=== PATIENT | female | born 1960 | race Caucasian/White ===

== ENCOUNTER 2017-01-18 19:49 | Emergency (ER) | payer OTHER ==
[~2017-01-18] VITALS: Wt 83.1 kg
[~2017-01-18 19:49] MED LIST: ATOR20TA38 PO; BEN25 PO; CYCL-319 PO; GEMF600T60 PO; HYDR-906 PO; MELO-109 PO; METF-382 PO
[2017-01-18] MEDS ORDERED: ONDANSETRON (ODT) 4 MG TAB ODT STA (21:09)
[2017-01-18] MEDS ORDERED: HYDROCODONE/APAP (10/325) TAB PO ONE (21:30)
--- NOTE | 2017-01-18 22:03 | RADRPT ---
PROCEDURE: XR Chest. CLINICAL INDICATION: Upper back pain. TECHNIQUE: Single frontal view of the chest was obtained COMPARISON: 08/29/2016 FINDINGS: The heart and mediastinum are within normal limits. The lungs are clear. There is no pleural effusion or pneumothorax. IMPRESSION: No acute disease. RPTAT: [facility] Physician Joann Date Time Electronically viewed and signed by Kaylee Hernandez Physician on 01/18/2017 22:03 RS/
[2017-01-18] MEDS ORDERED: OXYB5TAB7 PO (22:41)
[2017-01-18] MEDS ORDERED: MECL-77 PO (22:41)
[2017-01-18] MEDS ORDERED: SERT50TA6 PO (22:42)
[2017-01-18] MEDS ORDERED: TRAZ50TA18 PO (22:42)
[2017-01-18] MEDS ORDERED: HYDR-902 PO (22:48)
--- NOTE | 2017-01-18 22:51 | ERD ---
ER Documentation Chief Complaint Date/Time DATE: 01/18/17 TIME: 22:49 Chief Complaint CHEST PAIN RADIATING TO BACK FOR THE PAST 6 HRS. NO N/V. MILD SOB HPI Patient is a 56-year-old female with diabetes and high cholesterol presents with back pain. The patient had bad back pain per the family member and her "heart was beating hard". She has pain from her neck to her lower back. The pain is more right-sided than left-sided. The patient has back pain for 6 years but it was worse today. She has no urinary symptoms. She took "pain relief". She has no trauma and no falls. Upon review of old medical records the patient one previous visit to the ER in 2016. ROS All systems reviewed and are negative except as per history of present illness. Medications Home Meds Active Scripts Hydrocodone/Acetaminophen ([place] 10-325 Tablet) 1 Each Tablet, 1 TAB PO Q6H Y for PAIN, #7 TAB Prov:JACOB ESPINOSA MD 01/18/17 Cyclobenzaprine Hcl* (Cyclobenzaprine Hcl*) 10 Mg Tablet, 10 MG PO TID, #15 TAB Prov:MIC WYLIE 08/29/16 Reported Medications Sertraline Hcl* (Sertraline Hcl*) Unknown Strength Tablet, MG PO DAILY, #30 TAB 01/18/17 Trazodone Hcl* (Trazodone Hcl*) Unknown Strength Tablet, MG PO QHS, #30 TAB 01/18/17 Meclizine Hcl* (Meclizine Hcl*) 25 Mg Tablet, 25 MG PO Q8H Y for DIZZINESS, TAB 01/18/17 Oxybutynin Chloride* (Ditropan*) 5 Mg Tab, 5 MG PO, TAB 01/18/17 Diphenhydramine Hcl* (Benadryl*) 25 Mg Cap, 25 MG PO QHS Y for SLEEP, CAP 08/29/16 Metformin Hcl* (Metformin Hcl*) 500 Mg Tablet, 500 MG PO WITH BREAKFAST DINNE, # 30 TAB 08/29/16 Gemfibrozil* (Gemfibrozil*) 600 Mg Tablet, 600 MG PO BID, TAB 08/29/16 Discontinued Reported Medications Atorvastatin Calcium* (Atorvastatin Calcium*) 20 Mg Tablet, 20 MG PO QHS, #30 TAB 08/29/16 Meloxicam* (Meloxicam*) 7.5 Mg Tablet, 7.5 MG PO DAILY, #30 TAB 08/29/16 Discontinued Scripts Hydrocodone/Acetaminophen ([place] 5-325 Tablet) 1 Each Tablet, 1 TAB PO Q6H Y for PAIN, #20 TAB Prov:MIC WYLIE 08/29/16 Allergies Allergies: Coded Allergies: No Known Allergy (Unverified , 01/18/17) PMhx/Soc Medical and Surgical Hx: pt denies Surgical Hx History of Surgery: No Anesthesia Reaction: No Hx Neurological Disorder: No Hx Respiratory Disorders: No Hx Cardiac Disorders: Yes (HTN, high cholesterol, angina) Hx Psychiatric Problems: Yes (depression, anxiety) Hx Alcohol Use: No Hx Substance Use: No Hx Tobacco Use: No Smoking Status: Never smoker FmHx Family History: diabetes Physical Exam Vitals Vital Signs Date Time Temp Pulse Resp B/P Pulse Ox O2 Delivery O2 Flow Rate FiO2 01/18/17 20:07 98.8 74 20 174/75 100 Physical Exam Const: No acute distress Head: Atraumatic Eyes: Normal Conjunctiva ENT: Normal External Ears, Nose and Mouth. Neck: Full range of motion..~ No meningismus. Resp: Clear to auscultation bilaterally Cardio: Regular rate and rhythm, no murmurs Abd: Soft, non tender, non distended. Normal bowel sounds Skin: No petechiae or rashes Back: Tenderness to palpation diffusely throughout the back, no midline step- off or deformity noted Ext: No cyanosis, or edema Neur: Awake and alert Psych: Normal Mood and Affect Results 24 hrs Current Medications Medications (Trade) Dose Ordered Sig/Roma Route PRN Reason Start Time Stop Time Status Last Admin Dose Admin Acetaminophen/ Hydrocodone Bitart ([place] (10/325)) 1 tab ONCE ONCE PO 01/18/17 21:30 01/18/17 21:31 DC 01/18/17 21:38 Ondansetron HCl (Zofran Odt) 4 mg ONCE STAT ODT 01/18/17 21:09 01/18/17 21:10 DC 01/18/17 21:38 Procedures/MDM EKG read by me: Rate/Rhythm: Regular rate and rhythm at a rate of 85 Intervals: Normal Impression: No evidence of ischemia or arrhythmia Chest x-ray negative per radiology. Patient is a 56-year-old female who presents with acute on chronic back pain. At this point I doubt cauda equina syndrome, epidural abscess, or epidural hematoma. I believe outpatient management is appropriate. The patient will need to follow-up closely with the primary doctor but I have also given information for Dr. May from pain management. I will give a short course of [place] for pain. At this point I doubt acute coronary syndrome, pneumonia, pneumothorax, pulmonary embolism, or aortic dissection. The patient could return for any worsening symptoms. Departure Diagnosis: Primary Impression: Back pain Back pain location: back pain in unspecified location Chronicity: acute Back pain laterality: unspecified Qualified Code: M54.9 - Acute back pain, unspecified back location, unspecified back pain laterality Condition: Fair Patient Instructions: Back Pain (Acute Or Chronic) Referrals: [facility]AR[facility] MAY Additional Instructions: SPECIALIST: YOU HAVE A MEDICAL CONDITION WHICH REQUIRES YOU TO SEE A SPECIALIST WITHIN THE NEXT 1-2 DAYS. PLEASE FOLLOW UP WITH YOUR PRIMARY PHYSICIAN FOR REFFERAL.IF YOU DO NOT HAVE A PRIMARY CARE PHYSICIAN AND/OR YOU CAN NOT AFFORD TO SEE A PHYSICIAN THE FOLLOWING RESOURCES HAVE BEEN SUPPLIED TO YOU. IT IS YOUR RESPONSIBILITY TO BE SEEN BY THE SPECIALIST JACOB ESPINOSA MD Jan 18, 2017 22:51
[2017-01-18 23:02] VITALS: BP 119/53; PULSE 68; RESP 13; TEMP 97.9
== END 2017-01-18 23:05 | disposition home or self-care (01) ==
LOC: E/R 19:49
DX: M54.5 Low back pain (principal); I10 Essential (primary) hypertension; E11.9 Type 2 diabetes mellitus without complications; Z79.84 Long term (current) use of oral hypoglycemic drugs
CPT/HCPCS: 71010; 93005; Z7502; Z7610

== ENCOUNTER 2017-04-17 14:51 | Emergency (ER) | payer OTHER ==
[~2017-04-17] VITALS: Ht 160 cm; Wt 85.0 kg
[~2017-04-17 14:51] MED LIST changes: -ATOR20TA38 PO; +HYDR-902 PO; -HYDR-906 PO; +MECL-77 PO; -MELO-109 PO; -METF-382 PO; +METF500T4 PO; +OXYB5TAB7 PO; +SERT50TA6 PO; +TRAZ50TA18 PO
[2017-04-17 14:53] VITALS: Ht 160 cm; Wt 85.0 kg
[2017-04-17] MEDS ORDERED: ASPIRIN 325 MG TAB PO STA (16:24)
--- NOTE | 2017-04-17 16:45 | ERD ---
ER Documentation Chief Complaint Date/Time DATE: 04/17/17 TIME: 16:39 Chief Complaint CHEST PAIN X 2 DAYS HPI 56-year-old female with a history of diabetes mellitus type 2, hyperlipidemia, palpitations and chronic back pain presents the ED complaining of a 2 day history of palpitations and a tight feeling throughout her whole body with generalized weakness. Denies chest pain or shortness of breath. No leg pain or swelling. Denies PND, orthopnea or exertional dyspnea. No relieving or exacerbating factors. She has had similar symptoms for over 2 years. Chronic low back pain which is stable but persistent. No radicular symptoms. Denies headache, visual changes, focal weakness or numbness. Denies abdominal pain, nausea, vomiting, diarrhea or constipation. No skin rash. Admits to feeling anxious and depressed but denies suicidal or homicidal ideations. No URI symptoms or cough. No fevers or chills. ROS All systems reviewed and are negative except as per history of present illness. Medications Home Meds Active Scripts Alprazolam* (Xanax*) 0.5 Mg Tab, 0.5 MG PO Q8H Y for ANXIETY, #6 TAB Prov:RENA CISSE MD 04/17/17 Hydrocodone/Acetaminophen ([place] 10-325 Tablet) 1 Each Tablet, 1 TAB PO Q6H Y for PAIN, #7 TAB Prov:JACOB ESPINOSA MD 01/18/17 Cyclobenzaprine Hcl* (Cyclobenzaprine Hcl*) 10 Mg Tablet, 10 MG PO TID, #15 TAB Prov:MIC WYLIE 08/29/16 Reported Medications Sertraline Hcl* (Sertraline Hcl*) Unknown Strength Tablet, MG PO DAILY, #30 TAB 01/18/17 Trazodone Hcl* (Trazodone Hcl*) Unknown Strength Tablet, MG PO QHS, #30 TAB 01/18/17 Meclizine Hcl* (Meclizine Hcl*) 25 Mg Tablet, 25 MG PO Q8H Y for DIZZINESS, TAB 01/18/17 Oxybutynin Chloride* (Ditropan*) 5 Mg Tab, 5 MG PO, TAB 01/18/17 Diphenhydramine Hcl* (Benadryl*) 25 Mg Cap, 25 MG PO QHS Y for SLEEP, CAP 08/29/16 Metformin Hcl* (Metformin Hcl*) 500 Mg Tablet, 500 MG PO WITH BREAKFAST DINNE, # 30 TAB 08/29/16 Gemfibrozil* (Gemfibrozil*) 600 Mg Tablet, 600 MG PO BID, TAB 08/29/16 Allergies Allergies: Coded Allergies: No Known Allergy (Unverified , 01/18/17) PMhx/Soc Reviewed in chart. As per HPI. Lives with family. History of Surgery: No Anesthesia Reaction: No Hx Neurological Disorder: No Hx Respiratory Disorders: No Hx Cardiac Disorders: Yes (HTN, high cholesterol, angina) Hx Psychiatric Problems: Yes (depression, anxiety) Hx Alcohol Use: No Hx Substance Use: No Hx Tobacco Use: No FmHx No coronary artery disease, stroke or cancer Physical Exam Vitals Vital Signs Date Time Temp Pulse Resp B/P Pulse Ox O2 Delivery O2 Flow Rate FiO2 04/17/17 19:52 98.1 63 16 145/70 100 04/17/17 17:59 61 18 118/59 98 Nasal Cannula 04/17/17 17:24 Nasal Cannula 2 04/17/17 14:53 98.2 80 18 150/72 99 Physical Exam Const: Alert, anxious in moderate distress. Head: Atraumatic Eyes: Normal Conjunctiva ENT: Normal External Ears, Nose and Mouth. Neck: Full range of motion. Nontender. No JVD. Resp: Breath sounds are equal and clear to auscultation bilaterally. No rales rhonchi or wheezes. Cardio: Regular rate and rhythm, no murmurs. No chest wall tenderness Abd: Soft, non tender, non distended. Normal bowel sounds. Obese. No masses or abnormal pulsations. Skin: No petechiae or rashes Back: Mild diffuse lumbar muscle tenderness but no midline bony tenderness or paraspinal muscle spasm. No CVA tenderness. Ext: No cyanosis, or edema. No calf swelling or tenderness. Neur: Awake and alert. Cranial nerves II through XII are intact. Motor and sensory equal bilaterally. Psych: Patient appears anxious and depressed. Blunted affect. Result Diagram: 04/17/17 1645 04/17/17 1645 Results 24 hrs Laboratory Tests Test 04/17/17 16:45 White Blood Count 8.210^3/ul Red Blood Count 4.1210^6/ul Hemoglobin 12.3g/dl Hematocrit 36.3% Mean Corpuscular Volume 88.1fl Mean Corpuscular Hemoglobin 29.9pg Mean Corpuscular Hemoglobin Concent 33.9g/dl Red Cell Distribution Width 12.7% Platelet Count 04121^3/UL Mean Platelet Volume 9.9fl Neutrophils % 40.7% Lymphocytes % 46.9% Monocytes % 6.0% Eosinophils % 5.4% Basophils % 0.5% Nucleated Red Blood Cells % 0.0/100WBC Neutrophils # 3.310^3/ul Lymphocytes # 3.810^3/ul Monocytes # 0.510^3/ul Eosinophils # 0.410^3/ul Basophils # 0.010^3/ul Nucleated Red Blood Cells # 0.010^3/ul Sodium Level 142mmol/L Potassium Level 3.8mmol/L Chloride Level 110mmol/L Carbon Dioxide Level 30mmol/L Anion Gap 6 Blood Urea Nitrogen 14mg/dl Creatinine 0.55mg/dl Glucose Level 106mg/dl Calcium Level 9.5mg/dl Total Bilirubin 0.1mg/dl Direct Bilirubin 0.00mg/dl Indirect Bilirubin 0.1mg/dl Aspartate Amino Transf (AST/SGOT) 16IU/L Alanine Aminotransferase (ALT/SGPT) 25IU/L Alkaline Phosphatase 78IU/L Troponin I < 0.012ng/ml Total Protein 7.4g/dl Albumin 4.8g/dl Globulin 2.60g/dl Albumin/Globulin Ratio 1.84 Thyroid Stimulating Hormone (TSH) 0.621MIU/L Current Medications Medications (Trade) Dose Ordered Sig/Roma Route PRN Reason Start Time Stop Time Status Last Admin Dose Admin Aspirin (Aspirin) 325 mg ONCE STAT PO 04/17/17 16:24 04/17/17 16:26 DC 04/17/17 16:55 Lorazepam (Ativan) 0.5 mg ONCE ONCE IV 04/17/17 19:00 04/17/17 19:01 DC 04/17/17 19:13 EKG: Time: 15:03. Sinus rhythm. Ventricular rate 72, normal [place] and QRS intervals. No acute ST segment elevation or depression. No axis deviation or ectopy. EP Impression: Normal EKG IMAGING: PROCEDURE: CHEST 1VW CLINICAL INDICATION: Chest pain TECHNIQUE: Single frontal view of the chest was obtained COMPARISON: 01/18/2017 FINDINGS: The cardiac size is normal. Aortic vascular calcifications are demonstrated. There is no pulmonary vascular congestion. The lungs are clear. No consolidation, effusion, or pneumothorax. Mild degenerative changes of the visualized osseous structures are visualized. IMPRESSION: 1. No acute cardiopulmonary process. 2. Atherosclerosis. RPTAT:PP .Ruben Colon MD, Date Time Electronically viewed and signed by .Ruben Colon MD, on 04/17/2017 17:15 Procedures/MDM DOCUMENTS REVIEWED: ED nurse, prior ED REEXAMINATION/REEVALUATION: Time: 19:00. Anxious. Ativan 0.5 mg IV MEDICAL DECISION MAKIN-year-old female with a history of diabetes mellitus type 2, hyperlipidemia, palpitations and chronic back pain presents the ED complaining of a 2 day history of palpitations and a tight feeling throughout her whole body with generalized weakness. Long h/o similar symptoms. No ischemic EKG changes, elevated Troponin or objective signs of ACS. PERC negative and PE unlikely. No radiographic evidence of pneumonia or pneumothorax. Doubt aortic dissection. Occult dysrhythmia considered. TSH normal Symptoms most likely due to anxiety/depression. Stable for discharge with precautionary instructions and mandatory, urgent outpatient f/o as counseled. A short course of anxiolytics will be prescribed. Counseled patient regarding diagnostic workup, diagnosis and need for followup. Understands to return to ED if symptoms recur, worsen or any other concerns. Departure Diagnosis: Primary Impression: Chest pain of uncertain etiology Additional Impressions: Acute anxiety Diabetes mellitus type 2 in obese Hyperlipidemia Hyperlipidemia type: unspecified Qualified Code: E78.5 - Hyperlipidemia, unspecified hyperlipidemia type Depressed Depression Type: unspecified Qualified Code: F32.9 - Depression, unspecified depression type Condition: Stable RENA CISSE MD April 17, 2017 16:45
[2017-04-17 16:53] LABS: ADD SCAN DIFF NO
[2017-04-17 16:54] LABS: BASOPHILS % 0.5 % (0.0-2.0); EOSINOPHILS # 0.4 10^3/ul (0.0-0.5); EOSINOPHILS % 5.4 % (0.0-7.0); HEMATOCRIT 36.3 % (37.0-47.0); HEMOGLOBIN 12.3 g/dl (12.0-16.0); LYMPHOCYTES # 3.8 10^3/ul (0.8-2.9); LYMPHOCYTES % 46.9 % (15.0-51.0); MEAN CORPUSCULAR HEMOGLOBIN 29.9 pg (29.0-33.0); MEAN CORPUSCULAR HGB CONC 33.9 g/dl (32.0-37.0); MEAN CORPUSCULAR VOLUME 88.1 fl (82.0-101.0); MEAN PLATELET VOLUME 9.9 fl (7.4-10.4); MONOCYTE # 0.5 10^3/ul (0.3-0.9); NEUTROPHIL # 3.3 10^3/ul (1.6-7.5); NEUTROPHILS % 40.7 % (39.0-77.0); PLATELET COUNT 314 10^3/UL (140-415); RED BLOOD COUNT 4.12 10^6/ul (4.20-5.40); RED CELL DISTRIBUTION WIDTH 12.7 % (11.5-14.5); WHITE BLOOD COUNT 8.2 10^3/ul (4.8-10.8)
[2017-04-17 17:14] LABS: ALANINE AMINOTRANSFERASE 25 IU/L (13-69); ALBUMIN 4.8 g/dl (3.3-4.9); ALBUMIN/GLOBULIN RATIO 1.84; ALKALINE PHOSPHATASE 78 IU/L (42-121); ANION GAP 6 (8-16); ASPARTATE AMINO TRANSFERASE 16 IU/L (15-46); BILIRUBIN,INDIRECT 0.1 mg/dl (0-1.1); BILIRUBIN,TOTAL 0.1 mg/dl (0.2-1.3); BLOOD UREA NITROGEN 14 mg/dl (7-20); CALCIUM 9.5 mg/dl (8.4-10.2); CARBON DIOXIDE 30 mmol/L (21-31); CHLORIDE 110 mmol/L (97-110); CREATININE 0.55 mg/dl (0.44-1.00); GLUCOSE 106 mg/dl (70-220); POTASSIUM 3.8 mmol/L (3.5-5.1); SODIUM 142 mmol/L (135-144); TOTAL PROTEIN 7.4 g/dl (6.1-8.1)
--- NOTE | 2017-04-17 17:16 | RADRPT ---
PROCEDURE: CHEST 1VW CLINICAL INDICATION: Chest pain TECHNIQUE: Single frontal view of the chest was obtained COMPARISON: 01/18/2017 FINDINGS: The cardiac size is normal. Aortic vascular calcifications are demonstrated. There is no pulmonary vascular congestion. The lungs are clear. No consolidation, effusion, or pneumothorax. Mild degenerative changes of the visualized osseous structures are visualized. IMPRESSION: 1. No acute cardiopulmonary process. 2. Atherosclerosis. RPTAT:PP .Ruben Colon MD, MD Date Time Electronically viewed and signed by .Ruben Colon MD, on 04/17/2017 17:15 .V/
[2017-04-17 17:41] LABS: TROPONIN-I < 0.012 ng/ml (0.00-0.12)
[2017-04-17] MEDS ORDERED: LORAZEPAM 2 MG INJ IV ONE (19:00)
[2017-04-17 19:52] VITALS: BP 145/70; PULSE 63; RESP 16; TEMP 98.1
[2017-04-17] MEDS ORDERED: ALPR0.5T PO (19:53)
== END 2017-04-17 20:08 | disposition home or self-care (01) ==
LOC: E/R 14:51
DX: R07.89 Other chest pain (principal); F41.9 Anxiety disorder, unspecified; E66.9 Obesity, unspecified; E11.65 Type 2 diabetes mellitus with hyperglycemia; F32.9 Major depressive disorder, single episode, unspecified; I10 Essential (primary) hypertension; Z68.33 Body mass index [BMI] 33.0-33.9, adult; Z79.84 Long term (current) use of oral hypoglycemic drugs
CPT/HCPCS: 36415; 71010; 80053; 84443; 84484; 85025; 93005; 96374; J2060; Z7502; Z7610